=== PATIENT | male | born 1980 | race Caucasian/White ===

== ENCOUNTER 2017-01-11 22:04 | Emergency (ER) | payer OTHER ==
[~2017-01-11] VITALS: Ht 182.9 cm; Wt 104.4 kg
[~2017-01-11 22:04] MED LIST: AMOXICILLIN500 MG PO; PEN-VEE K,VEET500 MG PO; ULTRAM50 MG PO
[2017-01-11] MEDS ORDERED: NORCO 5/3251 TABLET PO (23:57)
[2017-01-11] MEDS ORDERED: PEN-VEE K,VEET500 MG PO (23:57)
[2017-01-12 00:08] VITALS: BP 130/95
== END 2017-01-12 00:15 | disposition home or self-care (01) ==
LOC: EXP 22:04 → EME 22:04 → EXP 01-12 00:15
PROC: 0C96XZZ Drainage of Lower Gingiva, External Approach (ICD-10-PCS; principal; 2017-01-11)
DX: K04.7 Periapical abscess without sinus (principal)
CPT/HCPCS: 99281; 99284